=== PATIENT | female | born 1970 | race African-American/Black ===

== ENCOUNTER 2018-05-15 10:30 | Emergency (ER) | payer MEDICAID ==
[~2018-05-15] VITALS: Ht 170.2 cm; Wt 73.6 kg
[~2018-05-15 10:30] MED LIST: AMOXICILLIN 8751 TAB PO; NORCO 325 MG-7.1 TAB PO
[2018-05-15 10:34] VITALS: BP 143/87; PULSE 84; TEMP 98.9
== END 2018-05-15 11:51 | disposition home or self-care (01) ==
LOC: COL.ER 10:30
DX: S93.505A Unspecified sprain of left lesser toe(s), initial encounter (principal); W22.8XXA Striking against or struck by other objects, initial encounter; Y92.009 Unspecified place in unspecified non-institutional (private) residence as the place of occurrence of the external cause

== ENCOUNTER 2020-03-07 17:54 | Emergency (ER) | payer SELFPAY ==
[~2020-03-07] VITALS: Ht 170.2 cm; Wt 77.3 kg
[2020-03-07 18:01] VITALS: BP 118/76; TEMP 97.9
[2020-03-07 19:57] VITALS: PULSE 86
== END 2020-03-07 20:00 | disposition home or self-care (01) ==
LOC: COL.ER 17:54
DX: S09.90XA Unspecified injury of head, initial encounter (principal); S39.012A Strain of muscle, fascia and tendon of lower back, initial encounter; S00.93XA Contusion of unspecified part of head, initial encounter; I10 Essential (primary) hypertension; V49.60XA Unspecified car occupant injured in collision with unspecified motor vehicles in traffic accident, initial encounter

== ENCOUNTER 2020-03-09 13:26 | Emergency (ER) | payer OTHER ==
[~2020-03-09] VITALS: Ht 170.2 cm; Wt 77.3 kg
[2020-03-09 13:33] VITALS: BP 141/90; PULSE 73; TEMP 98
[2020-03-09] MEDS ORDERED: FLEXERIL 1010 MG/TAB PO ×3 (14:53→15:49)
[2020-03-09] MEDS ORDERED: MEDROL 4MG DOSPA4 MG PO ×3 (14:53→15:49)
== END 2020-03-09 15:25 | disposition home or self-care (01) ==
LOC: COL.ER 13:26
DX: S13.4XXA Sprain of ligaments of cervical spine, initial encounter (principal); S33.9XXA Sprain of unspecified parts of lumbar spine and pelvis, initial encounter; V43.62XA Car passenger injured in collision with other type car in traffic accident, initial encounter
CPT/HCPCS: J1885